=== PATIENT | male | born 1950 | race Caucasian/White ===

== ENCOUNTER 2020-04-01 02:11 | Outpatient (CLI) | payer MEDICARE, MEDICAID, SELFPAY ==
--- NOTE | 2020-04-01 | DI.MRI_ITS ---
EXAM: MR PELVIS WO CLINICAL HISTORY: PROSTATE CA,C61,S/P FIDUCIAL MARKER AND HYDROGEL PLACEMENT TECHNIQUE: Multiplanar multisequence MRI of Pelvis was performed. CONTRAST MATERIAL: Noncontrast COMPARISON: No exams were available for comparison FINDINGS: Exam was performed for purposes treatment planning. The bones show some red marrow reconversion. No suspicious bony lesions are identified. No adenopathy is seen. Bladder is unremarkable. The semin al vesicles appear normal. DATA REPOSITORY:
== END 2020-04-01 02:31 ==
PROVIDERS: PCP Internal Medicine; Visit Provider Radiology Radiation Oncology
DX: C61 Malignant neoplasm of prostate (principal)
CPT/HCPCS: 72195

== ENCOUNTER 2025-03-24 21:20 | Outpatient (REF) | payer SELFPAY ==
[2025-03-24 18:37] LABS: Abs Immature Grans 0.02 10^3/uL (0.0-0.06); Absolute Basophil Count 0.03 10^3/uL (0.0-0.2); Absolute Eosinophil Count 0.06 10^3/uL (0.0-0.7); Absolute Lymphocyte Count 0.56 10^3/uL (1.2-3.4); Absolute Monocyte Count 0.41 10^3/uL (0.1-0.8); Absolute Neutrophil Count 2.92 10^3/uL (1.2-6.7); Basophils % 0.8 %; Eosinophils % 1.5 %; HCT 29.2 % (40.0-50.0); HGB 9.6 g/dL (13.5-17.5); Immature Grans % 0.5 %; MCHC 32.9 % (32.0-36.0); MCV 107 fL (80-95); MPV 10.7 fL (8.0-11.0); Monocytes % 10.3 %; Neutrophils % 72.9 %; Platelet Count 252 10^3/uL (130-400); RBC 2.74 10^6/uL (4.36-5.78); RDW-SD 70.6 fL
[2025-03-24 18:56] LABS: Macrocytosis 2+
[2025-03-24 19:35] LABS: ALT 16 U/L (16-63); AST 23 U/L (15-37); Albumin 3.1 g/dL (3.4-5.0); Alkaline Phosphatase 91 U/L (46-116); Anion Gap 5.3 mmol/L (3-11); BUN 16 mg/dL (7-18); CO2 30.7 mmol/L (21.0-32.0); Calcium 8.1 mg/dL (8.5-10.1); Chloride 103 mmol/L (98-107); Estimated GFR 78.49 (mL/min/1.73m2); Folate 7.9 ng/mL (8.6-20.0); Glucose 96 mg/dL (74-106); Magnesium 1.9 mg/dL (1.8-2.4); Potassium 4.4 mmol/L (3.5-5.1); Sodium 139 mmol/L (136-145); Total Protein 5.7 g/dL (6.4-8.2); Vitamin B12 616 pg/mL (193-986); Vitamin D 25 Total 6 ng/mL (30-100)
[2025-03-24 19:59] LABS: Hemoglobin A1C < 4.5 % (<5.7)
[2025-03-24 20:18] LABS: FREE T4 1.11 ng/dL (0.76-1.46); NT-proBNP 605 pg/mL (<300)
[2025-03-26 22:47] LABS: Parathyroid Hormone,Intact 104 pg/mL (19-88)
== END 2025-03-24 21:21 | disposition home or self-care (01) ==
LOC: LBN 21:20
PROVIDERS: PCP Internal Medicine; Visit Provider Nurse Practitioner Gerontology
DX: R73.03 Prediabetes (principal); I50.22 Chronic systolic (congestive) heart failure; E87.8 Other disorders of electrolyte and fluid balance, not elsewhere classified; D52.9 Folate deficiency anemia, unspecified; E83.42 Hypomagnesemia; R53.82 Chronic fatigue, unspecified; D51.9 Vitamin B12 deficiency anemia, unspecified; D63.1 Anemia in chronic kidney disease
CPT/HCPCS: 80053; 82306; 82607; 82746; 83036; 83735; 83880; 83970; 84439; 84443; 85025

== ENCOUNTER 2025-03-31 18:54 | Outpatient (REF) | payer SELFPAY ==
[2025-03-31 19:44] LABS: Anion Gap 7.6 mmol/L (3-11); BUN 14 mg/dL (7-18); CO2 31.4 mmol/L (21.0-32.0); CREATININE 0.9 mg/dL (0.70-1.30); Calcium 8.2 mg/dL (8.5-10.1); Chloride 104 mmol/L (98-107); Estimated GFR 89.07 (mL/min/1.73m2); Glucose 118 mg/dL (74-106); Potassium 4.3 mmol/L (3.5-5.1); Sodium 143 mmol/L (136-145)
== END 2025-03-31 18:55 | disposition home or self-care (01) ==
LOC: LBN 18:54
PROVIDERS: PCP Internal Medicine; Visit Provider Nurse Practitioner Gerontology
DX: E87.8 Other disorders of electrolyte and fluid balance, not elsewhere classified (principal)
CPT/HCPCS: 80048

== ENCOUNTER 2025-04-21 18:50 | Outpatient (REF) | payer MEDICARE, SELFPAY | END 2025-04-21 18:51 | disposition home or self-care (01) | LOC: LBN 18:50 | PROVIDERS: PCP Internal Medicine; Visit Provider Colon & Rectal Surgery | DX: C61 Malignant neoplasm of prostate (principal) | CPT/HCPCS: 84153 ==

== ENCOUNTER 2025-09-08 16:42 | Outpatient (REF) | payer MEDICARE, SELFPAY ==
[2025-09-08 17:43] LABS: Abs Immature Grans 0.02 10^3/uL (0.0-0.06); HCT 33.1 % (40.0-50.0); HGB 11.4 g/dL (13.5-17.5); Immature Grans % 0.3 %; MCH 36.9 pg (27.0-33.0); MCHC 34.4 % (32.0-36.0); MCV 107 fL (80-95); MPV 10.8 fL (8.0-11.0); Platelet Count 242 10^3/uL (130-400); RBC 3.09 10^6/uL (4.36-5.78); RDW 16.8 % (11.8-14.1); RDW-SD 65.6 fL; WBC 7.37 10^3/uL (4.4-10.8)
[2025-09-08 18:02] LABS: ALT 10 U/L (10-49); AST 14 U/L (<34); Albumin 4.1 g/dL (3.4-5.0); Alkaline Phosphatase 75 U/L (46-116); Anion Gap 10.5 mmol/L (3-11); BUN 16 mg/dL (9-23); Bilirubin, Total 1.00 mg/dL (0.2-1.2); CO2 28.5 mmol/L (20.0-31.0); Calcium 8.7 mg/dL (8.3-10.6); Chloride 101 mmol/L (98-107); Glucose 82 mg/dL (74-106); Potassium 4.2 mmol/L (3.5-5.1); Sodium 140 mmol/L (136-145); Total Protein 6.6 g/dL (5.7-8.2)
[2025-09-08 18:04] LABS: TSH (W/Ref FT4) 0.61 uIU/mL (0.55-4.78); Vitamin D 25 Total 15 ng/mL (30-100)
[2025-09-08 18:22] LABS: Macrocytosis 1+
== END 2025-09-08 16:43 | disposition home or self-care (01) ==
LOC: LBN 16:42
PROVIDERS: PCP Legal Medicine; Visit Provider Nurse Practitioner Gerontology
DX: I50.22 Chronic systolic (congestive) heart failure (principal); E55.9 Vitamin D deficiency, unspecified; E87.8 Other disorders of electrolyte and fluid balance, not elsewhere classified; D63.1 Anemia in chronic kidney disease; E03.9 Hypothyroidism, unspecified
CPT/HCPCS: 80053; 82306; 83880; 83970; 84443; 85025

== ENCOUNTER 2025-10-02 13:49 | Outpatient (REF) | payer MEDICARE, SELFPAY ==
[2025-10-02 16:35] LABS: TSH (W/Ref FT4) 0.58 uIU/mL (0.55-4.78)
[2025-10-02 16:36] LABS: Magnesium 1.8 mg/dL (1.6-2.6)
[2025-10-02 16:37] LABS: ALT 27 U/L (10-49); AST 28 U/L (<34); Albumin 3.9 g/dL (3.2-5.0); Alkaline Phosphatase 64 U/L (46-116); Anion Gap 11.1 mmol/L (3-11); BUN 18 mg/dL (9-23); Bilirubin, Total 1.3 mg/dL (0.2-1.2); CO2 27.9 mmol/L (20.0-31.0); Calcium 8.7 mg/dL (8.3-10.6); Chloride 105 mmol/L (98-107); Glucose 107 mg/dL (74-106); Potassium 3.5 mmol/L (3.5-5.1); Sodium 144 mmol/L (136-145); Total Protein 6.6 g/dL (5.7-8.2)
[2025-10-02 17:44] LABS: Abs Immature Grans 0.04 10^3/uL (0.0-0.06); HCT 31.2 % (40.0-50.0); HGB 10.6 g/dL (13.5-17.5); Immature Grans % 0.5 %; MCH 35.7 pg (27.0-33.0); MCHC 34.0 % (32.0-36.0); MCV 105 fL (80-95); MPV 10.7 fL (8.0-11.0); Platelet Count 244 10^3/uL (130-400); RBC 2.97 10^6/uL (4.36-5.78); RDW 17.5 % (11.8-14.1); RDW-SD 67.4 fL; WBC 8.08 10^3/uL (4.4-10.8)
[2025-10-02 18:15] LABS: Anisocytosis 1+; Macrocytosis 1+; Polychromasia Present
[2025-10-02 18:16] LABS: Poikilocytes 1+
== END 2025-10-02 13:50 | disposition home or self-care (01) ==
LOC: LBN 13:49
PROVIDERS: PCP Legal Medicine; Visit Provider Nurse Practitioner Gerontology
DX: E03.9 Hypothyroidism, unspecified (principal); D63.1 Anemia in chronic kidney disease; E87.8 Other disorders of electrolyte and fluid balance, not elsewhere classified; E83.42 Hypomagnesemia
CPT/HCPCS: 80053; 83735; 84443; 85025